=== PATIENT | male | born 1985 | race Caucasian/White ===

== ENCOUNTER 2016-09-23 14:12 | Emergency (ER) | payer MEDICARE ==
[~2016-09-23] VITALS: Ht 188 cm; Wt 78.0 kg
[2016-09-23 14:17] VITALS: BP 131/74; PULSE 70; RESP 16; TEMP 97.3; O2SAT 97
[2016-09-23 14:50] VITALS: BP 135/89; PULSE 79; RESP 17; O2SAT 96
[2016-09-23 15:02] VITALS: RESP 17; O2SAT 97
--- NOTE | 2016-09-23 15:06 | PD ---
HPI Chief Complaint: Alcohol/Drug Intoxication Time Seen by Provider: 14:51 Travel History International Travel<30 days: No Contact w/Intl Traveler<30days: No Traveled to known affect area: No History of Present Illness HPI This patient admits to smoking some synthetic marijuana. He then became drowsy and lethargic and altered. Someone called paramedics who brought him in for evaluation. He denies headache or injury. He admits to smoking the stuff but denies intentional harm or overdose. No suicidal thoughts. Symptoms severity is moderate. No alleviating factors. He is altered and his ability to give history and review of systems is poor [facility] Past Medical History Medical History: Denies Significant Hx Past Surgical History Surgical History: No Previous Surgery Social History Alcohol Use: Yes Tobacco Use: Yes (1/2PPD) Substance Use: Yes (SYNTHETIC MARIJUANA) Allergies-Medications (Allergen,Severity, Reaction): Coded Allergies: No Known Allergies (Unverified , 09/23/16) Reported Meds & Prescriptions Reported Meds & Active Scripts Active No Active Prescriptions or Reported Medications Review of Systems ROS Limitations: Clinical Condition, Altered Mental Status, Uncooperative, Poor Historian Physical Exam Narrative GENERAL: Well-nourished, well-developed patient in no apparent distress. SKIN: Warm and dry. HEAD: Atraumatic. Normocephalic. EYES: Pupils equal and round. No scleral icterus. No injection or drainage. ENT: No nasal bleeding or discharge. Mucous membranes pink and moist. NECK: Trachea midline. No JVD. No midline tenderness CARDIOVASCULAR: Regular rate and rhythm. No murmur appreciated. RESPIRATORY: No accessory muscle use. Clear to auscultation. Breath sounds equal bilaterally. GASTROINTESTINAL: Abdomen soft, non-tender, nondistended. Hepatic and splenic margins not palpable. MUSCULOSKELETAL: No obvious deformities. No clubbing. No cyanosis. No edema. NEUROLOGICAL: Awake but drowsy. No obvious cranial nerve deficits. Motor and sensory exams difficult to obtain given his limited participation. He has speech slurring. PSYCHIATRIC: Appropriate mood and affect; insight and judgment poor. Data Data Last Documented VS Vital Signs Date Time Temp Pulse Resp B/P Pulse Ox O2 Delivery O2 Flow Rate FiO2 09/23/16 15:02 17 97 Room Air 09/23/16 14:58 73 09/23/16 14:50 135/89 09/23/16 14:17 97.3 Orders Basic Metabolic Panel (Bmp) (09/23/16 14:58) Complete Blood Count With Diff (09/23/16 14:58) Iv Access Insert/Monitor (09/23/16 14:58) Ecg Monitoring (09/23/16 14:58) Oximetry (09/23/16 14:58) Drug Screen, Random Urine (09/23/16 14:58) Alcohol (Ethanol) (09/23/16 14:58) Salicylates (Aspirin) (09/23/16 14:58) Tylenol (Acetaminophen) (09/23/16 14:58) Labs Laboratory Tests Test 09/23/16 15:10 White Blood Count 19.0 TH/MM3 Red Blood Count 4.69 MIL/MM3 Hemoglobin 15.6 GM/DL Hematocrit 45.6 % Mean Corpuscular Volume 97.3 FL Mean Corpuscular Hemoglobin 33.2 PG Mean Corpuscular Hemoglobin 34.1 % Concent Red Cell Distribution Width 13.1 % Platelet Count 345 TH/MM3 Mean Platelet Volume 9.4 FL Neutrophils (%) (Auto) 80.6 % Lymphocytes (%) (Auto) 11.8 % Monocytes (%) (Auto) 6.7 % Eosinophils (%) (Auto) 0.5 % Basophils (%) (Auto) 0.4 % Neutrophils # (Auto) 15.3 TH/MM3 Lymphocytes # (Auto) 2.2 TH/MM3 Monocytes # (Auto) 1.3 TH/MM3 Eosinophils # (Auto) 0.1 TH/MM3 Basophils # (Auto) 0.1 TH/MM3 CBC Comment DIFF FINAL Differential Comment Sodium Level 145 MEQ/L Potassium Level 3.8 MEQ/L Chloride Level 108 MEQ/L Carbon Dioxide Level 28.1 MEQ/L Anion Gap 9 MEQ/L Blood Urea Nitrogen 11 MG/DL Creatinine 1.03 MG/DL Estimat Glomerular Filtration 85 ML/MIN Rate Random Glucose 91 MG/DL Calcium Level 8.6 MG/DL Salicylates Level 2.8 MG/DL Acetaminophen Level LESS THAN 2.0 MCG/ML Ethyl Alcohol Level 192 MG/DL MDM Medical Decision Making Medical Screen Exam Complete: Yes Emergency Medical Condition: Yes Medical Record Reviewed: Yes Differential Diagnosis Drug ingestion, medicine side effect, drug overdose Narrative Course I have reviewed the patient's electronic medical record. He has never been to the emergency room before. He is visiting from [place] IV placed CBC shows some nonspecific leukocytosis Metabolic profile is normal Tylenol level is negligible Aspirin level is negligible Alcohol level is elevated at 192 suggesting acute intoxication Drug screen is pending but ultimately will not change booth attendant This patient's presentation is most consistent with altered mental status due to alcohol intoxication and drug ingestion He is slowly sobering up and becoming more and more alert I'm going to give him some more time to sober up and when he can properly walk and talk he'll be stable for outpatient follow-up Diagnosis Primary Impression: Toxic encephalopathy Additional Impressions: Alcohol intoxication Qualified Code: F10.129 - Alcohol intoxication, with unspecified complication Polysubstance abuse Additional Instructions: Avoid alcohol binging and drug use The patient was advised to follow up with their physician and return if they worsen. Med/Other Pt SpecificInfo: Other Scripts No Active Prescriptions or Reported Meds Disposition: 01 DISCHARGE HOME Condition: Stable Chris Pickens MD Sep 23, 2016 15:06
[2016-09-23 15:26] LABS: AUTOMATED NEUTROPHIL # 15.3 TH/MM3 (1.8-7.7); BASOPHIL # 0.1 TH/MM3 (0-0.2); BASOPHIL % 0.4 % (0.0-2.0); EOSINOPHIL # 0.1 TH/MM3 (0-0.4); EOSINOPHIL % 0.5 % (0.0-4.0); HEMATOCRIT 45.6 % (39.0-51.0); HEMO FLAGS DIFF FINAL; LYMPH % 11.8 % (9.0-44.0); LYMPHOCYTE # 2.2 TH/MM3 (1.0-4.8); MEAN CELL VOLUME 97.3 FL (80.0-100.0); MEAN CORPUSCULAR HEMOGLOBIN 33.2 PG (27.0-34.0); MEAN CORPUSCULAR HGB CONC 34.1 % (32.0-36.0); MONO % 6.7 % (0.0-8.0); NEUT % 80.6 % (16.0-70.0); PLATELET COUNT 345 TH/MM3 (150-450); RED BLOOD COUNT 4.69 MIL/MM3 (4.50-5.90); RED CELL DISTRIBUTION WIDTH 13.1 % (11.6-17.2)
[2016-09-23 15:50] LABS: ANION GAP 9 MEQ/L (5-15); BICARBONATE 28.1 MEQ/L (21.0-32.0); BLOOD UREA NITROGEN 11 MG/DL (7-18); CHLORIDE 108 MEQ/L (98-107); GLOMERULAR FILTRATION RATE 85 ML/MIN (>89); POTASSIUM 3.8 MEQ/L (3.5-5.1); SODIUM (NA) 145 MEQ/L (136-145)
[2016-09-23 15:53] LABS: ACETAMINOPHEN LESS THAN 2.0 MCG/ML (10.0-30.0)
[2016-09-23 21:27] VITALS: BP 124/75; PULSE 85; RESP 20; O2SAT 95
--- NOTE | 2016-09-23 21:40 | PD ---
Data Data Last Documented VS Vital Signs Date Time Temp Pulse Resp B/P Pulse Ox O2 Delivery O2 Flow Rate FiO2 09/23/16 21:27 85 20 124/75 95 Room Air 09/23/16 14:17 97.3 Orders Basic Metabolic Panel (Bmp) (09/23/16 14:58) Complete Blood Count With Diff (09/23/16 14:58) Iv Access Insert/Monitor (09/23/16 14:58) Ecg Monitoring (09/23/16 14:58) Oximetry (09/23/16 14:58) Drug Screen, Random Urine (09/23/16 14:58) Alcohol (Ethanol) (09/23/16 14:58) Salicylates (Aspirin) (09/23/16 14:58) Tylenol (Acetaminophen) (09/23/16 14:58) Psych Screen (09/24/16 00:47) Labs Laboratory Tests Test 09/23/16 15:10 White Blood Count 19.0 TH/MM3 Red Blood Count 4.69 MIL/MM3 Hemoglobin 15.6 GM/DL Hematocrit 45.6 % Mean Corpuscular Volume 97.3 FL Mean Corpuscular Hemoglobin 33.2 PG Mean Corpuscular Hemoglobin 34.1 % Concent Red Cell Distribution Width 13.1 % Platelet Count 345 TH/MM3 Mean Platelet Volume 9.4 FL Neutrophils (%) (Auto) 80.6 % Lymphocytes (%) (Auto) 11.8 % Monocytes (%) (Auto) 6.7 % Eosinophils (%) (Auto) 0.5 % Basophils (%) (Auto) 0.4 % Neutrophils # (Auto) 15.3 TH/MM3 Lymphocytes # (Auto) 2.2 TH/MM3 Monocytes # (Auto) 1.3 TH/MM3 Eosinophils # (Auto) 0.1 TH/MM3 Basophils # (Auto) 0.1 TH/MM3 CBC Comment DIFF FINAL Differential Comment Sodium Level 145 MEQ/L Potassium Level 3.8 MEQ/L Chloride Level 108 MEQ/L Carbon Dioxide Level 28.1 MEQ/L Anion Gap 9 MEQ/L Blood Urea Nitrogen 11 MG/DL Creatinine 1.03 MG/DL Estimat Glomerular Filtration 85 ML/MIN Rate Random Glucose 91 MG/DL Calcium Level 8.6 MG/DL Salicylates Level 2.8 MG/DL Acetaminophen Level LESS THAN 2.0 MCG/ML Ethyl Alcohol Level 192 MG/DL [facility] Supervised Visit with PERRY: No Narrative Course Patient is a 31-year-old male who is in the emergency department sleeping of multiple substances tonight, waking patient endorses suicidal ideation states can go home and shoot himself. Patient states that the end of his rope the world would be better without him. Patient was placed under Urena act is medically clear for J pod evaluation and disposition. Diagnosis Primary Impression: Alcohol intoxication Qualified Code: F10.129 - Alcohol intoxication, with unspecified complication Additional Impression: Polysubstance abuse Patient Instructions: General Instructions, Encephalopathy (GEN) Departure Forms: Tests/Procedures Additional Instruction: Avoid alcohol binging and drug use The patient was advised to follow up with their physician and return if they worsen. Scripts No Active Prescriptions or Reported Meds Disposition: 01 DISCHARGE HOME Condition: Stable Galo Ngo MD Sep 23, 2016 21:40
[2016-09-24 02:24] VITALS: BP 122/67; PULSE 50; RESP 18; O2SAT 98
[2016-09-24 06:09] VITALS: BP 105/54; PULSE 51; RESP 19; O2SAT 100
[2016-09-24 10:05] VITALS: BP 110/53; PULSE 76; RESP 17; O2SAT 96
--- NOTE | 2016-09-24 11:09 | PD ---
History of Present Illness Chief Complaint: Psychiatric Symptoms Time Seen by Provider: 11:00 Travel History International Travel<30 Days: No Contact w/Intl Traveler<30days: No Known affected area: No Legal Status Legal Status: Involuntary Urena Act Signed By: DR. Chuy Urena Act Comment: CERTIFICATE OF PROFESSIONAL INITIATING INVOLUNTARY EXAMINATION09/23/16@2819 History of Present Illness: This is a 31-year-old male who recently "moved" to [place] approximately one month ago. He was living in a youth hostel in [place] until 2 days ago when he was kicked out. He has been using and abusing crack cocaine and came to [place] to do the same behavior. Last night he loaned his car to someone and reports it was not given back to him. He is very upset about this and apparently threatened to overdose on crack cocaine to kill himself if he was not taking care of by this facility. The patient is admitting to his significant history of crack cocaine use but apparently declined a toxicology screen last night. He continues to be upset about the loss of his car but this physician does not feel that inpatient psychiatric admission is warranted. In fact, it would be counter therapeutic to admit this patient as it is enabling his drug abuse behavior. Therefore the patient's Urena act was lifted, he was given bus passes and directions to homeless shelters. [facility] Past Medical History Medical History: Denies Significant Hx Past Surgical History Surgical History: No Previous Surgery Psychiatric History Psychiatric History Hx Psychiatric Treatment: DENIES History of Inpatient Treatment: No Social History Hx Alcohol Use: Yes Hx Tobacco Use: Yes (1/2PPD) Hx Substance Use: Yes (SYNTHETIC MARIJUANA) Substance Use Type: Crack Hx of Substance Use Treatment: No Allergies-Medications (Allergen,Severity, Reaction): Coded Allergies: No Known Allergies (Unverified , 09/23/16) Reported Meds & Prescriptions Reported Meds & Active Scripts Active No Active Prescriptions or Reported Medications Review of Systems Except as stated in HPI: all other systems reviewed are Neg Exam Alert: Yes Chana: Person, Place, Date, Situation Mood: Angry, Calm Affect: Restricted Speech: Clear, Logical Eye Contact: Normal Memory Intact: Immediate, Recent, Remote Delusions: No Suicidal: Ideation Insight/Judgement Impaired but adequate and most likely a salon. MDM Medical Decision Making Medical Record Reviewed: Yes Assessment/Plan Urena act being lifted and patient given bus passes to look for his vehicle. Also given directions to homeless custodial. Orders Basic Metabolic Panel (Bmp) (09/23/16 14:58) Complete Blood Count With Diff (09/23/16 14:58) Iv Access Insert/Monitor (09/23/16 14:58) Ecg Monitoring (09/23/16 14:58) Oximetry (09/23/16 14:58) Drug Screen, Random Urine (09/23/16 14:58) Alcohol (Ethanol) (09/23/16 14:58) Salicylates (Aspirin) (09/23/16 14:58) Tylenol (Acetaminophen) (09/23/16 14:58) Psych Screen (09/24/16 00:47) Diet Regular Basic (09/24/16 Breakfast) Diet Regular Basic (09/24/16 Lunch) Results Vital Signs Date Time Temp Pulse Resp B/P Pulse Ox O2 Delivery O2 Flow Rate FiO2 09/24/16 10:05 76 17 110/53 96 Room Air 09/24/16 06:09 51 19 105/54 100 Room Air 09/24/16 02:24 50 18 122/67 98 Room Air 09/23/16 21:27 85 20 124/75 95 Room Air 09/23/16 15:02 17 97 Room Air 09/23/16 14:58 73 17 98 09/23/16 14:50 79 17 135/89 96 09/23/16 14:17 97.3 70 16 131/74 97 Room Air Laboratory Tests Test 09/23/16 15:10 White Blood Count 19.0 Red Blood Count 4.69 Hemoglobin 15.6 Hematocrit 45.6 Mean Corpuscular Volume 97.3 Mean Corpuscular Hemoglobin 33.2 Mean Corpuscular Hemoglobin 34.1 Concent Red Cell Distribution Width 13.1 Platelet Count 345 Mean Platelet Volume 9.4 Neutrophils (%) (Auto) 80.6 Lymphocytes (%) (Auto) 11.8 Monocytes (%) (Auto) 6.7 Eosinophils (%) (Auto) 0.5 Basophils (%) (Auto) 0.4 Neutrophils # (Auto) 15.3 Lymphocytes # (Auto) 2.2 Monocytes # (Auto) 1.3 Eosinophils # (Auto) 0.1 Basophils # (Auto) 0.1 CBC Comment DIFF FINAL Differential Comment Sodium Level 145 Potassium Level 3.8 Chloride Level 108 Carbon Dioxide Level 28.1 Anion Gap 9 Blood Urea Nitrogen 11 Creatinine 1.03 Estimat Glomerular Filtration 85 Rate Random Glucose 91 Calcium Level 8.6 Salicylates Level 2.8 Acetaminophen Level LESS THAN 2.0 Ethyl Alcohol Level 192 Diagnosis Primary Impression: Alcohol intoxication Additional Impression: Polysubstance abuse Departure Forms: Tests/Procedures Patient Instructions: General Instructions, Encephalopathy (GEN) Additional Instructions: Avoid alcohol binging and drug use The patient was advised to follow up with their physician and return if they worsen. Prescriptions No Active Prescriptions or Reported Meds Disposition: 01 DISCHARGE HOME Condition: Stable Problem Qualifiers Primary Impression: Alcohol intoxication Qualified Code: F10.129 - Alcohol intoxication, with unspecified complication Trav Saenz MD Sep 24, 2016 11:09
== END 2016-09-24 13:08 | disposition home or self-care (01) ==
LOC: NEPA 14:12 → NEPJ 09-24 13:08
DX: G92 Toxic encephalopathy (principal); F10.129 Alcohol abuse with intoxication, unspecified; F19.10 Other psychoactive substance abuse, uncomplicated; Y90.6 Blood alcohol level of 120-199 mg/100 ml
CPT/HCPCS: 80048; 80320; 80329; 85025; 99285; G0480

== ENCOUNTER 2016-09-29 10:21 | Emergency (ER) | payer MEDICARE, OTHER ==
[~2016-09-29] VITALS: Ht 188 cm; Wt 80.0 kg
[2016-09-29 10:29] VITALS: BP 125/64; PULSE 88; RESP 16; TEMP 98.3; O2SAT 93
[2016-09-29] MEDS: RESP: ALBUTEROL 2.5 MG/IPRATROPIUM 0.5 MG NEB (SCH) INH (11:09)
--- NOTE | 2016-09-29 11:09 | RADRPT ---
EXAM DATE/TIME: 09/29/2016 10:51 [place] COMPARISON: No previous studies available for comparison. INDICATIONS : Asthma attack. Wheezing. Short of breath. MEDICAL HISTORY : Asthma. SURGICAL HISTORY : None. ENCOUNTER: Initial ACUITY: 1 day PAIN SCORE: 0/10 LOCATION: Bilateral chest FINDINGS: A single view of the chest demonstrates the lungs to be symmetrically aerated without evidence of mas s, infiltrate or effusion. The cardiomediastinal contours are unremarkable. Osseous structures are intact. CONCLUSION: Normal examination. Tomi Bruce MD on September 29, 2016 at 11:08 Board Certified Radiologist. This report was verified electronically.
--- NOTE | 2016-09-29 11:15 | PD ---
HPI Chief Complaint: Psychiatric Symptoms Time Seen by Provider: 11:00 Travel History International Travel<30 days: No Contact w/Intl Traveler<30days: No Traveled to known affect area: No History of Present Illness HPI Patient is a 31-year-old male brought in under Urena act by the police department for suicidal and homicidal ideations. Patient was seen in the parking lot at the [employer], according to the report he was experiencing some type of psychotic episode. Patient was crying uncontrollably making suicidal homicidal statements. Specifically he stated "I just want to give up and he's having nightmares about cutting other people". Patient reports a history of PTSD schizophrenia and asthma. He does endorse drinking alcohol this morning and smoking marijuana. He reports a previous suicide attempt approximately 2 years ago where he attempted to overdose on pills. Patient reports his chest feels tight secondary to asthma, he is out of his albuterol inhaler. He also states that he was punching his car window today. [facility] Past Medical History Asthma: Yes Depression: Yes Psychiatric: Yes (PTSD, schizophrenia) Tetanus Vaccination: < 5 Years Past Surgical History Surgical History: No Previous Surgery Social History Alcohol Use: Yes Tobacco Use: Yes (1/2PPD) Substance Use: Yes (SYNTHETIC MARIJUANA) Allergies-Medications (Allergen,Severity, Reaction): Coded Allergies: No Known Allergies (Unverified , 09/29/16) Reported Meds & Prescriptions Reported Meds & Active Scripts Active No Active Prescriptions or Reported Medications Review of Systems Except as stated in HPI: all other systems reviewed are Neg Psychiatric: Positive: Depression, Suicidal Ideations, Substance Abuse, Homicidal Ideation Physical Exam Narrative GENERAL: Well-developed, well-nourished, alert male. Resting comfortably in no acute distress. SKIN: Warm and dry. Superficial abrasions to the right hand and knuckles. No obvious deformities noted. HEAD: Atraumatic. Normocephalic. EYES: Pupils equal and round. No scleral icterus. No injection or drainage. ENT: No nasal bleeding or discharge. Mucous membranes pink and moist. NECK: Trachea midline. No JVD. CARDIOVASCULAR: Regular rate and rhythm. No murmur appreciated. RESPIRATORY: No accessory muscle use. Clear to auscultation. Breath sounds equal bilaterally. GASTROINTESTINAL: Abdomen soft, non-tender, nondistended. Hepatic and splenic margins not palpable. MUSCULOSKELETAL: No obvious deformities. No clubbing. No cyanosis. No edema. NEUROLOGICAL: Awake and alert. No obvious cranial nerve deficits. Motor grossly within normal limits. Normal speech. PSYCHIATRIC: Depressed mood and flat affect; insight and judgment normal. Data Data Last Documented VS Vital Signs Date Time Temp Pulse Resp B/P Pulse Ox O2 Delivery O2 Flow Rate FiO2 09/29/16 10:29 98.3 88 16 125/64 93 Orders Complete Blood Count With Diff (09/29/16 10:35) Comprehensive Metabolic Panel (09/29/16 10:35) Urinalysis - C+S If Indicated (09/29/16 10:35) Psych Screen (09/29/16 10:35) Drug Screen, Random Urine (09/29/16 10:35) Alcohol (Ethanol) (09/29/16 10:35) Salicylates (Aspirin) (09/29/16 10:35) Tylenol (Acetaminophen) (09/29/16 10:35) Chest, Single Ap (09/29/16 10:54) Albuterol-Ipratropium Neb (Duoneb Neb) (09/29/16 11:00) Labs Laboratory Tests Test 09/29/16 09/29/16 09/29/16 10:40 11:00 11:15 White Blood Count 8.5 TH/MM3 Red Blood Count 4.48 MIL/MM3 Hemoglobin 14.7 GM/DL Hematocrit 43.7 % Mean Corpuscular Volume 97.5 FL Mean Corpuscular Hemoglobin 32.8 PG Mean Corpuscular Hemoglobin 33.6 % Concent Red Cell Distribution Width 13.2 % Platelet Count 350 TH/MM3 Mean Platelet Volume 9.1 FL Neutrophils (%) (Auto) 53.8 % Lymphocytes (%) (Auto) 33.4 % Monocytes (%) (Auto) 10.0 % Eosinophils (%) (Auto) 2.2 % Basophils (%) (Auto) 0.6 % Neutrophils # (Auto) 4.6 TH/MM3 Lymphocytes # (Auto) 2.8 TH/MM3 Monocytes # (Auto) 0.8 TH/MM3 Eosinophils # (Auto) 0.2 TH/MM3 Basophils # (Auto) 0.1 TH/MM3 CBC Comment DIFF FINAL Differential Comment Sodium Level 145 MEQ/L Potassium Level 3.9 MEQ/L Chloride Level 109 MEQ/L Carbon Dioxide Level 25.5 MEQ/L Anion Gap 11 MEQ/L Blood Urea Nitrogen 11 MG/DL Creatinine 0.73 MG/DL Estimat Glomerular Filtration 127 ML/MIN Rate Random Glucose 79 MG/DL Calcium Level 8.5 MG/DL Total Bilirubin 0.3 MG/DL Aspartate Amino Transf 24 U/L (AST/SGOT) Alanine Aminotransferase 34 U/L (ALT/SGPT) Alkaline Phosphatase 71 U/L Total Protein 7.3 GM/DL Albumin 3.9 GM/DL Acetaminophen Level LESS THAN 2.0 MCG/ML Ethyl Alcohol Level 110 MG/DL Urine Color YELLOW Urine Turbidity CLEAR Urine pH 6.5 Urine Specific [place] 1.016 Urine Protein NEG mg/dL Urine Glucose (UA) NEG mg/dL Urine Ketones TRACE mg/dL Urine Occult Blood NEG Urine Nitrite NEG Urine Bilirubin NEG Urine Urobilinogen LESS THAN 2.0 MG/DL Urine Leukocyte Esterase NEG Urine RBC 2 /hpf Urine WBC 1 /hpf Urine Mucus FEW /lpf Microscopic Urinalysis Comment CULT NOT INDICATED Urine Opiates Screen NEG Urine Barbiturates Screen NEG Urine Amphetamines Screen NEG Urine Benzodiazepines Screen NEG Urine Cocaine Screen NEG Urine Cannabinoids Screen POS Salicylates Level 2.4 MG/DL MDM Medical Decision Making Medical Screen Exam Complete: Yes Emergency Medical Condition: Yes Medical Record Reviewed: Yes Interpretation(s) Vital Signs Date Time Temp Pulse Resp B/P Pulse Ox O2 Delivery O2 Flow Rate FiO2 09/29/16 10:29 98.3 88 16 125/64 93 Differential Diagnosis Mood disorder versus substance abuse versus suicidal ideations versus homicidal ideations versus PTSD versus medication noncompliance versus other Narrative Course Patient is a 31-year-old male presenting to the emergency room for evaluation of suicidal or homicidal ideations. Patient was brought in under Urena act. Patient's vital signs are stable, chest x-ray, DuoNeb, labs ordered. Psychiatric screen ordered pending medical clearance. 1123- chest x-ray shows no acute disease. 1209- CBC, chemistry, urinalysis reviewed and are unremarkable. Alcohol level is 110. Patient is medically cleared for psychiatric evaluation at this time. Patient reports improvement in his breathing after DuoNeb treatments. He will be provided with a prescription for Ventolin inhaler upon discharge. Diagnosis Primary Impression: Medical clearance for psychiatric admission Additional Impressions: Alcohol intoxication Qualified Code: F10.120 - Alcohol intoxication, uncomplicated Suicidal ideation Homicidal ideation PTSD (post-traumatic stress disorder) Depression Qualified Code: F32.9 - Depression, unspecified depression type Scripts Albuterol 18 GM Inh (Ventolin Hfa 18 GM Inh)90 Mcg/Act Aer2 Puff INH Q4-6H PRN ( SHORTNESS OF BREATH) #1 INHALER Ref 0 Prov:Effie Guaman 09/29/16 Condition: Stable Effie Guaman Sep 29, 2016 11:15
[2016-09-29 11:17] LABS: AUTOMATED NEUTROPHIL # 4.6 TH/MM3 (1.8-7.7); BASOPHIL # 0.1 TH/MM3 (0-0.2); BASOPHIL % 0.6 % (0.0-2.0); EOSINOPHIL # 0.2 TH/MM3 (0-0.4); EOSINOPHIL % 2.2 % (0.0-4.0); HEMATOCRIT 43.7 % (39.0-51.0); HEMO FLAGS DIFF FINAL; LYMPH % 33.4 % (9.0-44.0); LYMPHOCYTE # 2.8 TH/MM3 (1.0-4.8); MEAN CELL VOLUME 97.5 FL (80.0-100.0); MEAN CORPUSCULAR HEMOGLOBIN 32.8 PG (27.0-34.0); MEAN CORPUSCULAR HGB CONC 33.6 % (32.0-36.0); NEUT % 53.8 % (16.0-70.0); PLATELET COUNT 350 TH/MM3 (150-450); RED BLOOD COUNT 4.48 MIL/MM3 (4.50-5.90); RED CELL DISTRIBUTION WIDTH 13.2 % (11.6-17.2); WHITE BLOOD COUNT 8.5 TH/MM3 (4.0-11.0)
[2016-09-29 11:32] LABS: ALT (GPT) 34 U/L (12-78); ANION GAP 11 MEQ/L (5-15); AST (GOT) 24 U/L (15-37); BICARBONATE 25.5 MEQ/L (21.0-32.0); BLOOD UREA NITROGEN 11 MG/DL (7-18); CHLORIDE 109 MEQ/L (98-107); GLOMERULAR FILTRATION RATE 127 ML/MIN (>89); POTASSIUM 3.9 MEQ/L (3.5-5.1); SODIUM (NA) 145 MEQ/L (136-145)
[2016-09-29 11:33] LABS: BLOOD, URINE NEG (NEG); COMMENT (UR) CULT NOT INDICATED; CULTURE IF INDICATED CULT NOT INDICATED; GLUCOSE,URINE NEG (NEG); KETONE, URINE TRACE mg/dL (NEG); MUCUS URINE FEW /lpf (OCC); NITRITE,URINE NEG (NEG); PH, URINE 6.5 (5.0-8.5); URINE COLOR YELLOW (YELLW/STRAW)
[2016-09-29 11:37] LABS: AMPHETAMINE, URINE NEG (NEG); BARBITURATES, URINE NEG (NEG); COCAINE, URINE NEG (NEG)
[2016-09-29 11:40] LABS: ALKALINE PHOSPHATASE 71 U/L (45-117); TOTAL BILIRUBIN ADULT 0.3 MG/DL (0.2-1.0)
[2016-09-29 11:46] LABS: ACETAMINOPHEN LESS THAN 2.0 MCG/ML (10.0-30.0)
[2016-09-29] MEDS ORDERED: VENTAER INH (12:12)
[2016-09-29 13:14] VITALS: BP 134/78; PULSE 87; RESP 20; O2SAT 98
[2016-09-29 14:26] VITALS: BP 130/59; PULSE 70; RESP 18; TEMP 98.2; O2SAT 94
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
[2016-09-29 17:33] VITALS: BP 130/59; PULSE 70; RESP 18; O2SAT 94
== END 2016-09-29 18:12 | disposition home or self-care (01) ==
LOC: NEPE 10:21 → NEPJ 18:12
DX: F10.120 Alcohol abuse with intoxication, uncomplicated (principal); F12.10 Cannabis abuse, uncomplicated; F43.10 Post-traumatic stress disorder, unspecified; F32.9 Major depressive disorder, single episode, unspecified; J45.909 Unspecified asthma, uncomplicated
CPT/HCPCS: 71010; 80053; 80307; 80320; 80329; 81001; 85025; 94640; 94664; 99285; G0480